=== PATIENT | female | born 1990 | race Caucasian/White ===

== ENCOUNTER 2019-11-05 16:06 | Emergency (ER) | payer SELFPAY ==
[2019-11-05 16:23] VITALS: BP 129/59
--- NOTE | 2019-11-05 16:30 | ED Physician Documentation ---
PD HPI OPHTHO - Stated complaint Stated Complaint: RT EYE REDNESS - Chief complaint Chief Complaint: Heent - History obtained from History obtained from: Patient - History of Present Illness Timing - onset: Yesterday (Right eye redness since yesterday, some sensation of foreign body but no clear exposure. Vision is okay. Does not wear contacts.) Review of Systems Constitutional: denies: Fever, Chills Eyes: reports: Discharge, Irritation. denies: Loss of vision, Decreased vision, Photophobia Ears: denies: Loss of hearing, Ear pain PD PAST MEDICAL HISTORY - Present Medications Home Medications: Ambulatory Orders Medication Instructions Recorded Confirmed Erythromycin Base [Erythromycin 1 appful OP 5XD 7 Days #1 oint...g. 11/05/19 Ophthalmic Ointment] - Allergies Allergies/Adverse Reactions: Allergies Allergy/AdvReac Type Severity Reaction Status Date / Time Cillins Allergy Rash Uncoded 11/05/19 16:16 PD ED PE NORMAL - Vitals Vital signs reviewed: Yes - General General: Alert and oriented X 3, No acute distress - HEENT HEENT: Other (Moderate right eye conjunctivitis, no fluorescein uptake, no photophobia.) - Neck Neck: Supple, no meningeal sign, No bony TTP - Neuro Neuro: Alert and oriented X 3, Normal speech - Psych Psych: Normal mood, Normal affect Results - Vitals Vitals: Vital Signs - 24 hr 11/05/19 16:11 Temperature 36.4 C L Heart Rate 76 Respiratory 18 Rate Blood Pressure 129/59 L O2 Saturation 98 Oxygen O2 Source Room air Departure - Departure Disposition: 01 Home, Self Care Clinical Impression: Conjunctivitis, right eye Qualifiers: Conjunctivitis type: acute Acute conjunctivitis type: unspecified Qualified Code(s): H10.31 - Unspecified acute conjunctivitis, right eye Condition: Good Record reviewed to determine appropriate education?: Yes Instructions: ED Conjunctivitis Nonspecific Prescriptions: Erythromycin Base [Erythromycin Ophthalmic Ointment] 1 appful OP 5XD 7 Days #1 oint...g. Comments: Follow-up with an eye doctor if not better within a few days, return for new or worsening symptoms.
== END 2019-11-05 16:35 | disposition home or self-care (01) ==
LOC: ED 16:06
DX: H10.31 Unspecified acute conjunctivitis, right eye (principal)
CPT/HCPCS: 99282; 99283

== ENCOUNTER 2019-11-07 22:11 | Emergency (ER) | payer SELFPAY ==
[2019-11-07 22:26] VITALS: BP 111/68
--- NOTE | 2019-11-08 01:15 | ED Physician Documentation ---
PD HPI OPHTHO - Stated complaint Stated Complaint: R EYE REDNESS - Chief complaint Chief Complaint: Heent - History obtained from History obtained from: Patient - History of Present Illness Timing - onset: How many days ago (3-4) Timing - duration: Days Timing - details: Gradual onset Pain level now: 4 Location: Right Quality / character: Aching Associated symptoms: Redness, Swelling, Tearing, Matting, FB sensation Contributing factors: No: Exposed to conjunctivitis, Recent URI, FB, UV light (welding etc), Chemical exposure, acid, Chemical exposure, base, Blunt trauma, Penetrating trauma, Irrigated [employer] Recently seen: Emergency Dept - Additional information Additional information: T+R 3 days ago from this ED for right eye redness and FB sensation. she was prescribed erythromycin ointment but she returns due to worsening symptoms despite using the rx as directed. she has swelling around the right eye and continues ro have strong FB sensation Review of Systems Constitutional: reports: Reviewed and negative Eyes: reports: Discharge, Irritation. denies: Loss of vision, Decreased vision, Photophobia PD PAST MEDICAL HISTORY - Past Medical History Past Medical History: No - Past Surgical History Past Surgical History: No - Present Medications Home Medications: Ambulatory Orders Medication Instructions Recorded Confirmed Erythromycin Base [Erythromycin 1 appful OP 5XD 7 Days #1 oint...g. 11/05/19 Ophthalmic Ointment] Cephalexin [Keflex] 500 mg PO Q6H #28 capsule 11/08/19 Hydrocodone/Acetaminophen 1 each PO Q6HR PRN #10 tablet 11/08/19 [Hydrocodone-Acetamin 5-325 mg] - Allergies Allergies/Adverse Reactions: Allergies Allergy/AdvReac Type Severity Reaction Status Date / Time Cillins Allergy Rash Uncoded 11/05/19 16:16 PD ED PE NORMAL - Vitals Vital signs reviewed: Yes - General General: Alert and oriented X 3, Well developed/nourished PD ED PE EXPANDED - Eyes Eyes: Right eye, No eyelid FB (everted), Injected conj/sclera, Normal corneas, Anterior chambers clear, Other (mild periorbital erythema and periorbital edema right eye). No: Fluorescein uptake Results - Vitals Vitals: Oxygen O2 Source Room air PD MEDICAL DECISION MAKING - ED course Complexity details: considered differential, d/w patient ED course: examined under slit lamp without and then with fluorescein. exam included upper lid eversion. no FB visualized and no fluorescein uptake. suspect progression of conjunctivitis with mild periorbital involvement, will change topical abx and add oral abx for possible periorbital cellulitis. Departure - Departure Disposition: 01 Home, Self Care Clinical Impression: Conjunctivitis, right eye Condition: Good Instructions: ED Conjunctivitis Nonspecific Prescriptions: Hydrocodone/Acetaminophen [Hydrocodone-Acetamin 5-325 mg] 1 each PO Q6HR PRN #10 tablet PRN Reason: Pain Cephalexin [Keflex] 500 mg PO Q6H #28 capsule Comments: Use the antibiotic drops as follows: 1 drop in right eye four times per day for 1 week Forms: Activity restrictions Discharge Date/Time: 11/08/19 02:01
[2019-11-08] MEDS ORDERED: PROPARACAINE 0.5% OPHTH DROPS 15 ML RIGHTEYE STA (01:18)
[2019-11-08] MEDS ORDERED: cephALEXin 250 MG CAPSULE PO STA (01:42)
[2019-11-08] MEDS ORDERED: POLYMYXIN B/TRIMETH OPHTH DROPS RIGHTEYE STA (01:42)
[2019-11-08] MEDS ORDERED: HYDROcod/ACET 5/325 Prepack 4 PO STA (01:43)
== END 2019-11-08 02:01 | disposition home or self-care (01) ==
LOC: ED 22:11
DX: H10.9 Unspecified conjunctivitis (principal)
CPT/HCPCS: 99282; 99283; A9270; J3490